=== PATIENT | female | born 1965 | race Caucasian/White ===

== ENCOUNTER 2018-10-09 06:15 | Day surgery (SDC) | payer OTHER ==
[2018-10-09] VITALS (9 sets, daily range): BP systolic 103–137; BP diastolic 48–72; PULSE 62–82; RESP 13–22; Ht 170.2 cm; Wt 68.2 kg
[~2018-10-09] VITALS: Ht 170.2 cm; Wt 68.2 kg
--- NOTE | 2018-10-09 07:10 | PREAC ---
Date/Time of Note Date/Time of Note DATE: 10/09/18 TIME: 07:10 Anesthesia Eval and Record Evaluation Time Pre-Procedure Interview DATE: 10/09/18 TIME: 07:10 Age 53 Sex female NPO: 8 hrs Preoperative diagnosis Plantar nerve lesion left foot Planned procedure Excision of left foot lesion Past Medical History Past Medical History: Includes Cardio: Dyslipidemia Surgery & Anesthesia Issues No known issue Meds Anticoagulation: No Beta Clint within 24 hr: No Reason Beta Clint not given: Pt. not on B-Clint No Active Prescriptions or Reported Meds Meds reviewed: Yes Allergies Coded Allergies: No Known Allergy (Unverified , 10/09/18) Allergies Reviewed: Yes Labs/Studies Labs Reviewed: Reviewed by anesthesiologist test: N/A Pre-procedure Exam Last vitals Vital Signs Date Temp Pulse Resp B/P (MAP) Pulse Ox O2 O2 Flow FiO2 Time Delivery Rate 10/09/18 97.7 82 18 137/72 97 Room Air 06:55 (93) Airway: Adequate mouth opening Mallampati: Mallampati I Teeth: Normal Lung: Normal Heart: Normal ASA Physical Status ASA physical status: 2 Emergency: None Planned Anesthetic General/MAC: LMA, MAC Planned Pain Management Parenteral pain med Pre-operative Attestations Prior to commencing anesthesia and surgery, the patient was re-evaluated, there was verification of: *The patient's identity *The results of appropriate recent lab work and preoperative vital signs *The above evaluation not changing prior to induction *Anesthetic plan, risk benefits, alternative and complications discussed with patient/family; questions answered; patient/family understands, accepts and wishes to proceed. JARED FIGUEROA MD Oct 09, 2018 07:10
[2018-10-09] MEDS ORDERED: PROPOFOL 20 ML ONE ×2 (07:27→07:34)
[2018-10-09] MEDS ORDERED: FENTAnyl 50 MCG/ML VIAL ONE (07:35)
[2018-10-09] MEDS ORDERED: MIDAZOLAM 1 MG/ML 2 ML INJ ONE ×2 (07:35→08:07)
[2018-10-09] MEDS ORDERED: LIDOCAINE 1%/EPI 30 ML INJ ONE (07:38)
[2018-10-09] MEDS ORDERED: LIDOCAINE 2% (SDV) 5 ML INJ ONE (07:46)
[2018-10-09] MEDS ORDERED: CEFAZOLIN 1 GM INJ ONE (07:49)
[2018-10-09] MEDS ORDERED: MEPERIDINE 25 MG INJ IV PRN (08:00)
[2018-10-09] MEDS ORDERED: DIPHENHYDRAMINE 50 MG INJ IV PRN (08:00)
[2018-10-09] MEDS ORDERED: FENTAnyl 50 MCG/ML VIAL IV PRN ×3 (08:00)
[2018-10-09] MEDS ORDERED: METOCLOPRAMIDE 10 MG INJ IV PRN (08:00)
[2018-10-09] MEDS ORDERED: ONDANSETRON 4 MG INJ IV PRN (08:00)
[2018-10-09] MEDS ORDERED: OXYCODONE/ACETAMINOPHEN (5/325) TAB PO PRN ×2 (08:00)
[2018-10-09] MEDS ORDERED: MIDAZOLAM 1 MG/ML 2 ML INJ IV PRN (08:00)
[2018-10-09] MEDS ORDERED: BUPIVACAINE 0.5% (SDV) 30 ML INJ ONE (08:04)
[2018-10-09] MEDS ORDERED: DEXAMETHASONE 4 MG/ML 1 ML INJ ONE (08:04)
[2018-10-09] MEDS ORDERED: TRIAMCINOLONE ACET 40 MG/ML INJ ONE (08:04)
--- NOTE | 2018-10-09 09:01 | SIPON ---
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
--- NOTE | 2018-10-09 09:10 | PAC ---
Date/Time of Note Date/Time of Note DATE: 10/09/18 TIME: 09:09 Post-Anesthesia Notes Post-Anesthesia Note Last documented vital signs Vital Signs Date Temp Pulse Resp B/P (MAP) Pulse Ox O2 O2 Flow FiO2 Time Delivery Rate 10/09/18 99.8 08:38 10/09/18 70 22 115/62 100 Room Air 08:31 (79) Activity: WNL Respiratory function: WNL Cardiovascular function: WNL Mental status: Baseline Pain reasonably controlled: Yes Hydration appropriate: Yes Nausea/Vomiting absent: Yes JARED FIGUEROA MD Oct 09, 2018 09:10
--- NOTE | 2018-10-13 12:06 | OPR ---
DATE OF OPERATION: 10/09/2018 DATE OF SURGERY: 10/09/2018 PREOPERATIVE DIAGNOSIS: Left foot third interspace neuroma. POSTOPERATIVE DIAGNOSIS: Left foot third interspace neuroma. OPERATION: Resection and removal of transverse ligament, third interspace. ANESTHESIA: General anesthesia. ESTIMATED BLOOD LOSS: Minimal. Pneumatic thigh tourniquet was used for less than 15 minutes. Local anesthesia, 10 mL of lidocaine, 1% with epinephrine. DESCRIPTION OF PROCEDURE: The patient was brought to the operating table in prone position and the o perating table in a supine position. Following anesthesia, the patient's left foot was prepped and d raped in the usual aseptic manner. The patient's left foot was elevated and pneumatic thigh tourniqu et was elevated to 350 mmHg. At this point, attention was directed to the patient's left foot. I ma de a 3 cm incision over the dorsal aspect of the third interspace carefully dissecting the subcutaneo us tissue and deeper tissues with care being taken to retract all neurovascular structures. At this point, I used a Weitlaner to keep the space open and utilize my surgical loops to identify the nerve, which was very inflamed in the third interspace and it was the underlying transverse ligament. The transverse ligament was carefully identified and resected and a small piece of it was taken out, so w ill not be repairing itself as tightly as it did before. At this point, the surgery was completed, I injected in this space, not into the nerve, in the space about 2 mL of Marcaine plain with 1 mL of d examethasone to calm down the nerve and decrease inflammation. The subcutaneous tissue was reapproxi mated and coapted utilizing a 3-0 Vicryl and the skin was reapproximated and coapted utilizing 4-0 ny skye. The patient's left foot was dressed appropriately with a 4 x 4, Марина and Coban. The patient t olerated anesthesia surgery well, was escorted to the postanesthesia care unit with vital signs stabl e and neurovascular structures intact to the left lower extremity. Dictated By: FANTA HERZOG/JANICE Conf#: [id number] DID#: [id number] CC: FANTA GREEN DPM;*EndCC*
== END 2018-10-09 09:40 | disposition home or self-care (01) ==
LOC: SDS 06:15
PROVIDERS: ATTEND Podiatrist Foot & Ankle Surgery
DX: G57.82 Other specified mononeuropathies of left lower limb (principal); E78.5 Hyperlipidemia, unspecified
CPT/HCPCS: 64776; J0690; J1100; J2250; J3010